=== PATIENT | male | born 1980 | race Caucasian/White ===

== ENCOUNTER → 2021-05-05 | Outpatient (CLI) | payer OTHER ==
[~2021-05-05] MED LIST: DICLOFEN TOP; FAMOTIDINE20 MG PO; HYDROCODON-ACE1 EAC4 PO; HYDROXYZINE HCL50 MG PO; IBU800 MG PO; PROTONIX 40 MG40 M1 PO
[2021-05-05 13:44] LABS: BUN/CREATININE RATIO 18 (0-10)
== END ==
LOC: OPSV2 11:30
PROVIDERS: Orthopaedic Surgery
DX: Z01.818 Encounter for other preprocedural examination (principal); T85.848A Pain due to other internal prosthetic devices, implants and grafts, initial encounter
CPT/HCPCS: 71046; 80048; 93005

== ENCOUNTER → 2021-05-12 | Day surgery (SDC) | payer OTHER ==
[~2021-05-12] VITALS: Ht 170.2 cm; Wt 108.9 kg
== END | disposition home or self-care (01) ==
LOC: OR 08:44
DX: T84.84XA Pain due to internal orthopedic prosthetic devices, implants and grafts, initial encounter (principal); G89.18 Other acute postprocedural pain; F17.220 Nicotine dependence, chewing tobacco, uncomplicated; Z20.822 Contact with and (suspected) exposure to COVID-19; Z53.8 Procedure and treatment not carried out for other reasons
CPT/HCPCS: J7120